=== PATIENT | male | born 1965 | race Hispanic/Latino ===

== ENCOUNTER 2019-11-16 18:35 | Emergency (ER) | payer MEDICARE ==
--- NOTE | 2019-11-16 19:24 | Emergency Department Report ---
Blank Doc - Documentation Documentation: 53-year-old male that presents with uncontrolled nose bleed. Denies any injur ies or trauma. Denies any dizziness or headache. This initial assessment/diagnostic orders/clinical plan/treatment(s) is/are subject to change based on patient's health status, clinical progression and re- assessment by fellow clinical providers in the ED. Further treatment and workup at subsequent clinical providers discretion. Patient/guardians urged not to elope from the ED as their condition may be serious if not clinically assessed and managed. Initial orders include: 1- Patient sent to MAIN ED for further evaluation and treatment 2- applied tongue depresser pressure to the nose
[2019-11-16 20:56] VITALS: BP 178/87
--- NOTE | 2019-11-16 21:56 | Emergency Department Report ---
ED General Adult HPI - General Chief complaint: Nosebleed Stated complaint: NOSE BLEED Time Seen by Provider: 11/16/19 19:20 Source: patient Mode of arrival: Ambulatory Limitations: No Limitations - History of Present Illness Initial comments: Patient is a 53-year-old white male with a history of schizophrenia presents to the ED with acute onset persistent intermittent nosebleed for the last 24 hours. Patient states that he has had up to 3 episodes of nosebleeds on the left. Patient also complains of nasal and sinus congestion and states that he has been blowing his nose. Patient states that the nosebleed has since resolved upon arrival in the ED. Patient denies headache, dizziness, syncope, nausea, vomiting, sore throat, cough, chest pain or shortness of breath, traumatic injury or change in vision. MD Complaint: Nosebleed -: Sudden, hour(s) (24) Location: face Radiation: non-radiation Severity scale (0 -10): 0 Quality: dull Consistency: intermittent Improves with: none Worsens with: none Associated Symptoms: denies other symptoms. denies: confusion, chest pain, cough, diaphoresis, fever/chills, headaches, loss of appetite, malaise, nausea/vomiting, rash, shortness of breath, syncope, weakness Treatments Prior to Arrival: none - Related Data Home Medications Medication Instructions Recorded Confirmed Last Taken OLANzapine [ZyPREXA] 1 mg PO Q24HR 12/16/12 12/16/12 Unknown clonazePAM [ Klonopin] 2.5 mg PO BID 12/16/12 12/16/12 Unknown Allergies Allergy/AdvReac Type Severity Reaction Status Date / Time No Known Allergies Allergy Unverified 12/16/12 22:03 ED Review of Systems ROS: Stated complaint: NOSE BLEED Other details as noted in HPI Constitutional: denies: chills, fever Eyes: denies: eye pain, eye discharge, vision change ENT: epistaxis, congestion. denies: ear pain, throat pain Respiratory: denies: cough, shortness of breath, SOB with exertion, wheezing Cardiovascular: denies: chest pain, palpitations Endocrine: no symptoms reported Gastrointestinal: denies: abdominal pain, nausea, diarrhea Genitourinary: denies: urgency, dysuria Musculoskeletal: denies: back pain, joint swelling, arthralgia Skin: denies: rash, lesions Neurological: denies: headache, weakness, paresthesias Psychiatric: denies: anxiety, depression Hematological/Lymphatic: denies: easy bleeding, easy bruising ED Past Medical Hx - Past Medical History Hx Hypertension: No Hx CVA: No Hx Heart Attack/AMI: No Hx Congestive Heart Failure: No Hx Diabetes: No Hx Deep Vein Thrombosis: No Hx Pulmonary Embolism: No Hx GERD: No Hx Liver Disease: No Hx Renal Disease: No Hx Sickle Cell Disease: No Hx Arthritis: No Hx Headaches / Migraines: No Hx Seizures: No Hx Kidney Stones: No Hx Psychiatric Treatment: Yes Hx Asthma: No Hx COPD: No Hx Tuberculosis: No Hx Dementia: No Hx HIV: No - Surgical History Hx Coronary Stent: No Hx Open Heart Surgery: No Hx Pacemaker: No Hx Internal Defibrillator: No Hx Cholecystectomy: No Hx Appendectomy: No Hx Breast Surgery: No - Social History Smoking Status: Current Every Day Smoker Substance Use Type: Alcohol - Medications Home Medications: Home Medications Medication Instructions Recorded Confirmed Last Taken Type OLANzapine [ZyPREXA] 1 mg PO Q24HR 12/16/12 12/16/12 Unknown History clonazePAM [ Klonopin] 2.5 mg PO BID 12/16/12 12/16/12 Unknown History ED Physical Exam - General Limitations: No Limitations General appearance: alert, in no apparent distress - Head Head exam: Present: atraumatic, normocephalic, normal inspection - Eye Eye exam: Present: normal appearance, PERRL, EOMI Pupils: Present: normal accommodation - ENT ENT exam: Present: normal orophraynx, mucous membranes moist, TM's normal bilaterally, normal external ear exam, other (Grossly congested nasal passages) - Neck Neck exam: Present: normal inspection, full ROM. Absent: tenderness - Respiratory Respiratory exam: Present: normal lung sounds bilaterally. Absent: respiratory distress, wheezes, rales, chest wall tenderness - Cardiovascular Cardiovascular Exam: Present: regular rate, normal rhythm, normal heart sounds. Absent: systolic murmur, diastolic murmur, rubs, gallop - GI/Abdominal GI/Abdominal exam: Present: soft, normal bowel sounds. Absent: tenderness, guarding, rebound, hyperactive bowel sounds, hypoactive bowel sounds, organomegaly - Extremities Exam Extremities exam: Present: normal inspection, full ROM, normal capillary refill - Back Exam Back exam: Present: normal inspection, full ROM. Absent: tenderness, CVA tenderness (R), CVA tenderness (L), muscle spasm, paraspinal tenderness - Neurological Exam Neurological exam: Present: alert, oriented X3 - Psychiatric Psychiatric exam: Present: normal affect, normal mood, anxious - Skin Skin exam: Present: warm, dry, intact, normal color. Absent: rash ED Course Vital Signs 11/16/19 19:21 Temperature 98.1 F Pulse Rate 80 Respiratory 18 Rate Blood Pressure 178/87 O2 Sat by Pulse 95 Oximetry ED Medical Decision Making - Medical Decision Making This is a 53-year-old white male with a history of schizophrenia presents to the ED with acute onset persistent intermittent nosebleed for the last 24 hours. Patient states that he has had up to 3 episodes of nosebleeds on the left. Patient also complains of nasal and sinus congestion and states that he has been blowing his nose. Patient states that the nosebleed has since resolved upon arrival in the ED. Patient states that he is not on any blood thinners. In n the ED, patient is alert and oriented x3 and is not in any distress. The nosebleed has since resolved and patient was educated on what to do in case he starts having nosebleeds at home by applying cold rag on his forehead and pinching his nose for 10 to 15 minutes while breathing through the mouth.patient verbalized understanding. Patient was advised to follow-up with his primary care physician in 5 to 7 days for reevaluation or return to the ED immediately if symptoms get worse. - Differential Diagnosis Nosebleed : URI; rhinitis; sinusitis Critical care attestation.: If time is entered above; I have spent that time in minutes in the direct care of this critically ill patient, excluding procedure time. ED Disposition Clinical Impression: Anterior epistaxis, Viral upper respiratory infection Disposition: TO HOME OR SELFCARE Is pt being admited?: No Does the pt Need Aspirin: No Condition: Stable Instructions: Upper Respiratory Infection (ED), Epistaxis (ED) Additional Instructions: Apply cold wet rag on your forehead and pinch your nose for 10 to 15 minutes while breathing through the mouth in case you have any recurrent nosebleeds. Follow-up with your primary care physician in 5 to 7 days for reevaluation or return to the ED immediately if symptoms get worse. Referrals: [facility] [Provider Group] - 3-5 Days Time of Disposition: 21:58 Print Language: [id number]
== END 2019-11-16 22:30 | disposition home or self-care (01) ==
LOC: ED 18:35
DX: R04.0 Epistaxis (principal); Z79.899 Other long term (current) drug therapy; F17.200 Nicotine dependence, unspecified, uncomplicated
CPT/HCPCS: 99282